=== PATIENT | female | born 1980 | race American Indian/Alaskan Native ===

== ENCOUNTER 2020-02-22 12:40 | Outpatient (CLI) | payer OTHER ==
--- NOTE | 2020-02-22 16:20 | Mammography Report ---
BILATERAL DIGITAL DIAGNOSTIC MAMMOGRAM WITH CAD -- 02/22/2020 BILATERAL LIMITED BREAST ULTRASOUND INDICATION: Patient presents for evaluation of an area of palpable concern in the left breast and an additional area of palpable concern in the left axilla. Patient has history of bilateral breast reduc tion in 2018. TECHNIQUE: Digital bilateral mammographic imaging was performed. Spot compression views were obtaine d. Limited ultrasound was performed. This examination was interpreted with the benefit of Computer- ded Detection (CAD) analysis. COMPARISON: None available FINDINGS: Breast Density: There are scattered areas of fibroglandular density. MAMMOGRAPHIC FINDINGS: Bilateral post reduction changes are noted. No suspicious mammographic abnorma lity is seen underlying the skin markers denoting site of palpable concern in the 6:00 position of th e left breast as well as the left axilla. There is an 8 mm focal asymmetric density seen in the 11 to 12:00 position of the left breast, middle depth, which persists but is slightly less conspicuous on additional views. Additionally, there is an approximately 2.4 cm focal asymmetric density seen in the 9 to 10:00 position of the right breast, anterior to middle depth. Targeted ultrasound performed for further evaluation. ULTRASOUND FINDINGS: Targeted ultrasound evaluation was performed of the area of interest. Left breast: Corresponding with the area of palpable concern in the left axilla, there is a morpholog ically normal lymph node measuring up to 1.3 cm in long axis without evidence of cortical thickening. Corresponding with the area of palpable concern in the left breast 6:00 position located 8 cm from t he nipple, there is a superficial hypoechoic oval circumscribed lesion measuring up to 6 x 3 x 7 mm. No suspicious sonographic abnormality is identified to correspond with the questioned focal asymmetri c density seen in the 11 to 12:00 position. Right breast: Targeted ultrasound of the right breast reveals a benign simple cyst in the 12:00 subar eolar position measuring up to 1.5 x 1.2 x 0.6 cm. This does not definitively correspond with the fritz mographic finding, which was slightly more lateral. No suspicious cystic or solid lesion identified i n the 9 to 10:00 position to correlate with the mammographic finding. IMPRESSION: 1. An oval circumscribed hypoechoic lesion accounts for the area of palpable concern in the 6:00 left breast. This is near the area of patient's prior scar and likely represents postsurgical change/gran ulation tissue. This is considered probably benign, recommend left breast ultrasound in 6 months to e nsure stability. 2. A benign lymph node accounts for the area of palpable concern in the left axilla. 3. Additional bilateral focal asymmetric densities without sonographic correlates are considered prob ably benign and most likely represent post reduction change. Recommend bilateral diagnostic mammogram in 6 months to ensure stability. Follow up recommendation: Short term follow up in 6 months. BI-RADS Category 3: Probably Benign. Followup in 6 months. A "normal" or negative report should not discourage follow up or biopsy of a clinically significant f inding. A written summary of these findings will be mailed to the patient. The patient will be entered into a mammography reporting system which will generate a reminder letter for the patient's next appointmen t at the appropriate interval. According to the [employer], yearly mammograms are recommended starting at age 40 and continuing as long as a woman is in good health. Breast MRI is recommended for women with an herlinda roximately 20-25% or greater lifetime risk of breast cancer, including women with a strong family his tory of breast or ovarian cancer and women who have been treated for Hodgkin's disease. Signer Name: Pat Chowdhury MD Signed: 02/22/2020 4:15 PM Workstation Name: [id number]
== END 2020-02-22 12:41 | disposition home or self-care (01) ==
LOC: MAMMO 12:40
DX: N60.01 Solitary cyst of right breast (principal); N64.89 Other specified disorders of breast
CPT/HCPCS: 77066

== ENCOUNTER 2020-08-23 11:26 | Outpatient (CLI) | payer OTHER ==
--- NOTE | 2020-08-23 13:17 | Mammography Report ---
BILATERAL DIGITAL DIAGNOSTIC MAMMOGRAM WITH CAD , 08/23/2020 LEFT LIMITED BREAST ULTRASOUND CLINICAL INFORMATION / INDICATION: Follow-up bilateral focal asymmetric densities. Follow-up left emory ast lump/nodule. TECHNIQUE: Digital bilateral mammographic imaging was performed. Limited ultrasound was performed. Th is examination was interpreted with the benefit of Computer-Aided Detection (CAD) analysis. COMPARISON: Bilateral diagnostic mammography and ultrasound 02/22/20. FINDINGS: Breast Density: There are scattered areas of fibroglandular density. MAMMOGRAPHIC FINDINGS: No dominant mass or suspicious calcifications in either breast. There are bila teral reduction changes. Benign-appearing nodularity bilaterally is stable. ULTRASOUND FINDINGS: Targeted ultrasound evaluation was performed of the area of interest. The prev iously described small hypoechoic nodule at the 6:00 position 8 cm from the nipple superficially is a gain identified. The nodule is solid and measures approximately 6.4 mm in greatest dimension on the c urrent study. No posterior features are seen and there is no internal vascularity on Doppler exam. Th e nodule is unchanged to slightly smaller and likely represents scar tissue at the reduction site. IMPRESSION: No mammographic or sonographic evidence of malignancy. Follow up recommendation: Routine yearly BI-RADS Category 2: Benign. A "normal" or negative report should not discourage follow up or biopsy of a clinically significant f inding. A written summary of these findings will be mailed to the patient. The patient will be entered into a mammography reporting system which will generate a reminder letter for the patient's next appointmen t at the appropriate interval. According to the [employer], yearly mammograms are recommended starting at age 40 and continuing as long as a woman is in good health. Breast MRI is recommended for women with an herlinda roximately 20-25% or greater lifetime risk of breast cancer, including women with a strong family his tory of breast or ovarian cancer and women who have been treated for Hodgkin's disease. Signer Name: Mitchel Villafuerte MD Signed: 08/23/2020 1:12 PM Workstation Name: [id number]
== END 2020-08-23 11:27 | disposition home or self-care (01) ==
LOC: SPVWC 11:26
PROVIDERS: ATTEND Advanced Practice Midwife
DX: N63.42 Unspecified lump in left breast, subareolar (principal); N60.02 Solitary cyst of left breast
CPT/HCPCS: 77066

== ENCOUNTER 2021-05-16 09:50 | Outpatient (CLI) | payer OTHER ==
--- NOTE | 2021-05-16 11:15 | Mammography Report ---
BILATERAL DIGITAL SCREENING MAMMOGRAM WITH CAD HISTORY: Screening mammogram. Patient reports a lump under the left arm which she states has been pre viously evaluated and has been stable since 2017. History of bilateral reduction surgery. TECHNIQUE: Routine digital mammographic imaging performed. This examination was interpreted with randy jin of Computer-aided Detection analysis. COMPARISON: 08/23/2020, 02/22/2020. FINDINGS: Breast Density: scattered fibroglandular appearance of the breast tissue. Digital CC and MLO views demonstrate no mammographic evidence of malignancy. Stable mild reduction c hanges bilaterally. IMPRESSION: No mammographic evidence of malignancy. If the clinical examination remains stable, recommend bilate ral mammogram in approximately one year. BIRADS 2: Benign Finding(s). FURTHER INFORMATION: According to the [employer], yearly mammograms are recommend ed starting at age 40 and continuing as long as a woman is in good health. Clinical Breast Exams shou ld be part of a periodic health exam-about every 3 years for women in their 20s and 30s and every yea r for women 40 and over. Breast self exam is an option for women starting in their 20s. Any breast ch martha noted on a breast self exam should be reported promptly to the patient's healthcare provider. Br east MRI is recommended for women with an approximately 20-25% or greater lifetime risk of breast can cer, including women with a strong family history of breast or ovarian cancer and women who have been treated for Hodgkin's disease. A negative Mammography report should not discourage follow up or biopsy of a clinically significant f inding and/or abnormality. Dense breast tissue may obscure small neoplasms. The patient will be entered into a reminder system with a target due date for the next screening mamm ogram. Signer Name: Manoj Mckeon MD Signed: 05/16/2021 11:10 AM Workstation Name: [id number]
== END 2021-05-16 09:51 | disposition home or self-care (01) ==
LOC: SPVWC 09:50
PROVIDERS: ATTEND Surgery
DX: Z12.31 Encounter for screening mammogram for malignant neoplasm of breast (principal)
CPT/HCPCS: 77067